=== PATIENT | female | born 2000 | race Caucasian/White ===

== ENCOUNTER 2024-05-10 06:15 | Outpatient (REF) | payer OTHER, SELFPAY ==
--- NOTE | ~2024-05-10 | US_ITS ---
CLINICAL HISTORY: IRREGULAR PERIODS WITH PAIN US pelvis transvaginal Comparison: None Findings: Transvaginal scanning performed. The uterus measures 8.1 cm length. Normal myometrium. Endometrium 5.6 mm thickness. Right ovary 4 x 1.6 x 1.2 cm. Left ovary 3.7 x 4 x 4 cm. 2.8 cm simple cyst noted Normal color Doppler of both ovaries. Trace free fluid in the cul-de-sac IMPRESSION: No acute findings. Simple 2.8 cm cyst within the left adnexa requiring no follow-up Trace free fluid in the cul-de-sac This document has been electronically signed by: Murtaza Dorantes MD on 05/11/2024 13:26:27
== END 2024-05-10 06:16 | disposition home or self-care (01) ==
LOC: HO.UMASIMG 06:15
PROVIDERS: Visit Provider Nurse Practitioner Women's Health
DX: N92.6 Irregular menstruation, unspecified (principal)
CPT/HCPCS: 76830; 76856

== ENCOUNTER → 2024-05-10 10:30 | Outpatient (BNV) | payer OTHER, SELFPAY | PROVIDERS: Visit Provider Radiology Vascular & Interventional Radiology | DX: N92.6 Irregular menstruation, unspecified (principal) | CPT/HCPCS: 76830; 76856 ==